=== PATIENT | female | born 1990 | race Caucasian/White ===

== ENCOUNTER 2022-02-05 00:44 | Emergency (ER) | payer OTHER ==
[~2022-02-05] VITALS: Ht 160 cm; Wt 72.6 kg
[2022-02-05] MEDS ORDERED: Prednisone20 MG PO (05:31)
[2022-02-05] MEDS ORDERED: ALBU90OI INH (05:31)
== END 2022-02-05 05:47 | disposition home or self-care (01) ==
LOC: ER 00:44
DX: J45.909 Unspecified asthma, uncomplicated (principal); Z88.0 Allergy status to penicillin; F17.200 Nicotine dependence, unspecified, uncomplicated
CPT/HCPCS: 71045; 94640; 94664; 99283-25; J7512